=== PATIENT | male | born 1980 | race American Indian/Alaskan Native ===

== ENCOUNTER 2016-09-10 19:03 | Emergency (ER) | payer SELFPAY ==
[2016-09-10 20:34] LABS: Alanine Aminotransferase 56 units/L (7-56); Albumin 4.5 g/dL (3.9-5); Albumin/Globulin Ratio 1.1 %; Alkaline Phosphatase 63 units/L (35-129); Anion Gap 19 mmol/L; BUN/Creatinine Ratio 15.45; Blood Urea Nitrogen 17 mg/dL (9-20); Calcium 9.5 mg/dL (8.4-10.2); Carbon Dioxide 26 mmol/L (22-30); Chloride 100.1 mmol/L (98-107); Glucose 124 mg/dL (75-100); Sodium 141 mmol/L (137-145); Total Protein 8.5 g/dL (6.3-8.2)
[2016-09-10 20:42] LABS: Basophils % (Auto) 0.3 % (0.0-1.8); Hematocrit 47.2 % (35.5-45.6); Mean Corpuscular HGB Conc 32 % (32-34); Mean Corpuscular Hemoglobin 27 pg (28-32); Mean Corpuscular Volume 86 fl (84-94); Platelet Count 178 K/mm3 (140-440); Red Blood Count 5.47 M/mm3 (3.65-5.03); Red Cell Distribution Width 13.8 % (13.2-15.2); White Blood Count 9.2 K/mm3 (4.5-11.0)
[2016-09-10 23:46] LABS: Bilirubin,Urine NEG (Negative); Blood,Urine NEG (Negative); Ketones,Urine NEG (Negative); Leukocyte Esterase,Urine NEG (Negative); Mucus,Urine FEW /HPF; Nitrite,Urine NEG (Negative); Protein,Urine <15 mg/dL mg/dL (Negative); Urobilinogen,Urine < 2.0 mg/dL (<2.0)
[2016-09-11] MEDS ORDERED: MORPHINE IV ONE (11:24)
--- NOTE | 2016-09-11 12:24 | Emergency Department Report ---
ED Abdominal Pain HPI - General Chief Complaint: Abdominal Pain Stated Complaint: STOMACH AND LOWER BACK PAIN Time Seen by Provider: 09/11/16 11:04 Source: patient Mode of arrival: Ambulatory Limitations: No Limitations - History of Present Illness Initial Comments: 36-year-old male presents to the emergency department complaining of abdominal and back pain. Patient states for the past 2 days he's been having sharp, mid abdominal pain that radiates into his lower back. Patient states the pain is present whenever he breathes in. The deeper he breathes in, the more severe the pain is. Pain is relieved with exhalation. He denies chest pain, shortness of breath, nausea, vomiting, diarrhea, or fever. There are no other complaints. MD Complaint: abdominal pain -: Gradual, days(s) (2) Location: periumbilical Radiation: back Migration to: no migration Severity: moderate Severity scale (0 -10): 4 Quality: sharp Consistency: intermittent Improves With: other (exhalation) Worsens With: other (inhalation) Associated Symptoms: denies other symptoms - Related Data Previous Rx's Medication Instructions Recorded Last Taken Type HYDROcodone/APAP 5-325 [Tarpley 1 each PO Q6HR PRN #14 tablet 09/11/16 Unknown Rx 5/325] Allergies Allergy/AdvReac Type Severity Reaction Status Date / Time No Known Allergies Allergy Verified 09/10/16 19:54 ED Review of Systems ROS: Stated complaint: STOMACH AND LOWER BACK PAIN Other details as noted in HPI Comment: All other systems reviewed and negative Gastrointestinal: abdominal pain Musculoskeletal: back pain ED Past Medical Hx - Past Medical History Previous Medical History?: No - Surgical History Past Surgical History?: Yes Additional Surgical History: small bowel resection - Family History Family history: no significant - Social History Smoking Status: Former Smoker Substance Use Type: None - Medications Home Medications: Home Medications Medication Instructions Recorded Confirmed Last Taken Type HYDROcodone/APAP 5-325 [Tarpley 1 each PO Q6HR PRN #14 tablet 09/11/16 Unknown Rx 5/325] ED Physical Exam - General Limitations: No Limitations General appearance: alert, in no apparent distress - Head Head exam: Present: atraumatic, normocephalic - Eye Eye exam: Present: normal appearance, PERRL, EOMI - ENT ENT exam: Present: normal exam, normal orophraynx, mucous membranes moist - Neck Neck exam: Present: normal inspection, full ROM. Absent: tenderness - Respiratory Respiratory exam: Present: normal lung sounds bilaterally. Absent: respiratory distress - Cardiovascular Cardiovascular Exam: Present: regular rate, normal rhythm, normal heart sounds - GI/Abdominal GI/Abdominal exam: Present: soft, normal bowel sounds. Absent: distended, tenderness - Extremities Exam Extremities exam: Present: normal inspection, full ROM. Absent: tenderness - Back Exam Back exam: Present: normal inspection, full ROM. Absent: tenderness - Neurological Exam Neurological exam: Present: alert, oriented X3. Absent: motor sensory deficit - Skin Skin exam: Present: warm, dry, intact ED Course Vital Signs 09/10/16 09/11/16 09/11/16 19:54 02:59 11:38 Temperature 99.5 F 98.1 F Pulse Rate 90 58 L 72 Respiratory 16 18 16 Rate Blood Pressure 143/87 129/81 Blood Pressure 128/71 [Left] O2 Sat by Pulse 98 100 98 Oximetry 09/11/16 11:39 Temperature Pulse Rate Respiratory 16 Rate Blood Pressure Blood Pressure [Left] O2 Sat by Pulse 98 Oximetry ED Medical Decision Making - Lab Data Result diagrams: 09/10/16 20:00 09/10/16 20:00 - Radiology Data Radiology results: report reviewed, image reviewed CT of the abdomen and pelvis shows no acute intra-abdominal findings. - Medical Decision Making Lab and imaging results reviewed and discussed with the patient. Patient reports feeling better with medication. Patient will be discharged home at this time. - Differential Diagnosis abdominal pain, abdominal wall pain, obstruction, appendicitis Critical care attestation.: If time is entered above; I have spent that time in minutes in the direct care of this critically ill patient, excluding procedure time. ED Disposition Clinical Impression: Abdominal pain in male Disposition: DC- TO HOME OR SELFCARE Is pt being admited?: No Condition: Stable Instructions: Abdominal Pain (ED) Prescriptions: HYDROcodone/APAP 5-325 [Tarpley 5/325] 1 each PO Q6HR PRN #14 tablet PRN Reason: Pain Referrals: PRIMARY CARE, [Primary Care Provider] - 3-5 Days Time of Disposition: 14:49
[2016-09-11] MEDS ORDERED: NACL ONE (13:22)
--- NOTE | 2016-09-11 14:30 | Cat Scan Report ---
CT of the abdomen and pelvis with IV contrast. History: Abdominal pain, history of partial bowel resection. Findings: The liver, spleen, pancreas, and adrenal glands are normal. The kidneys are normal in size and configuration with no evidence of mass or hydronephrosis. There is no adenopathy within the retroperitoneum or pelvis. No mesenteric inflammation is seen. There is no free air. There is no radiographic evidence of appendicitis. Impression: Negative study.
[2016-09-11 15:01] VITALS: BP 135/73
== END 2016-09-11 15:01 | disposition home or self-care (01) ==
LOC: ED 19:03
DX: R10.9 Unspecified abdominal pain (principal); Z87.891 Personal history of nicotine dependence
CPT/HCPCS: 36415; 74177; 80053; 81001; 85025; 96374; 99284; J2270; Q9967